=== PATIENT | male | born 1990 | race Caucasian/White ===

== ENCOUNTER 2016-10-19 19:07 | Emergency (ER) | payer OTHER ==
--- NOTE | ~2016-10-19 | ER ---
PATIENT'S NAME: MATTHEW VAZQUEZ [facility] AGE: 26 Y [address] ROOM: [place] [id number] LOCATION: [facility] ADMIT DATE: 10/19/2016 ER/Outpatient Report DISCHARGE DATE: 10/19/2016 FAMILY PHYSICIAN: PHYSICIAN, NO ATTENDING PHYSICIAN: Ketan Dean Time of Arrival: 1921 hours. Time of Exam: 1928 hours. CHIEF COMPLAINT: Right leg injury. 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 He denies any numbness or tingling of his toes. Walked in with a steady even gait. Denies any other injury other than the laceration. ALLERGIES: HE HAS NO KNOWN ALLERGIES. CURRENT MEDICATIONS: None. PAST MEDICAL HISTORY: Benign. PAST SURGERIES: Negative. SOCIAL HISTORY: He smokes 1 pack per day. Drinks alcohol on a social basis. Denies use of drugs. Reports his last tetanus was approximately 3 years ago when he had a laceration to his left forearm. REVIEW OF SYSTEMS: All negative other than those mentioned in the HPI. PHYSICAL EXAMINATION: VITAL SIGNS: He weighed 76.7 kg. Blood pressure is 118/60, pulse is 69, respirations are 16, and O2 saturation is 98% on room air. GENERAL: He is awake, alert, and oriented x4. SKIN: [place], warm, and dry. RESPIRATIONS: Even and nonlabored. Lung sounds are clear throughout. PATIENT'S NAME: MATTHEW VAZQUEZ [facility] AGE: 26 Y [address] ROOM: [place] [address] LOCATION: [facility] ADMIT DATE: 10/19/2016 ER/Outpatient Report DISCHARGE DATE: 10/19/2016 FAMILY PHYSICIAN: PHYSICIAN, NO ATTENDING PHYSICIAN: Ketan Dean HEART: Regular rate and rhythm. MUSCULOSKELETAL: The patient has a flap type laceration to the right lower leg anterior aspect, it measures 2.5 cm x 0.5 cm x 2.5 cm in the U-shape. LABORATORY DATA AND X-RAYS: X-ray was completed of the area, no bony involvement is noted. EMERGENCY ROOM COURSE: The area was then cleansed with saline and Betadine and anesthetized with 1% lidocaine with epinephrine and then closed with 4-0 Ethilon x11 stitches. The patient tolerated the procedure well. IMPRESSION: Laceration of the right anterior lower leg, simple closure. PLAN: Home, rest. Ice to the area. Keep it clean and dry. Wound instructions were reviewed with the patient. Sutures should come out in 7-10 days. If he has signs of infection, he needs to follow up with his primary provider in the next 2 to 3 days. He verbalized understanding. JAJA KHAN APRN FOR [facility] MCNEAL/torrie /[id number] d: 10/20/16 0124 t: 11/05/16 0549, OUTPATIENT REPORT
== END 2016-10-19 20:35 | disposition disaster alternative care site (69) ==
LOC: GACC 19:07
PROC: 0HQKXZZ Repair Right Lower Leg Skin, External Approach (ICD-10-PCS; principal; 2016-10-19)
DX: S81.811A Laceration without foreign body, right lower leg, initial encounter (principal); F17.210 Nicotine dependence, cigarettes, uncomplicated; W01.0XXA Fall on same level from slipping, tripping and stumbling without subsequent striking against object, initial encounter; Y99.0 Civilian activity done for income or pay